=== PATIENT | male | born 1955 | race Caucasian/White ===

== ENCOUNTER 2023-10-27 18:00 | Inpatient (IN) | payer OTHER, SELFPAY ==
[2023-10-27] VITALS (28 sets, daily range): BP systolic 111–166; BP diastolic 21–93; PULSE 78; BMI 44.2; BMI 43.8
--- NOTE | 2023-10-27 17:38 | ED.CVA ---
History of Present Illness
General
Chief Complaint: CVA/TIA Symptoms
Source: patient and ambulance crew
Exam Limitations: none
Time Seen by Provider: 10/27/23 17:36
Nursing documentation reviewed up to this point in time: agreed with
Onset of Stroke Symptoms
Onset of symptoms known: Yes
Date of onset of symptoms: 10/27/23
Time of onset of symptoms: 17:00
History of Present Illness
History of Present Illness:
67-year-old male with past medical history of obesity who presents to the emergency room via EMS for evaluation of left-sided weakness and facial droop, prehospital stroke alert called. Patient reports onset of symptoms around 5 PM today�he was
getting food with a friend and had abrupt onset of blurry vision followed by left facial droop, slurred speech and left-sided weakness. EMS called to the scene and transported patient to the hospital, prehospital stroke alert was called. Patient
denies any headache. He says he feels some numbness and weakness in the left face. He says his left arm feels very weak and he feels mild weakness in the left leg. He denies any loss of vision. He denies similar symptoms in the past. He denies
any falls or head trauma. He denies taking any blood thinners. Per EMS he was normotensive with a normal Accu-Chek.
Review of Systems
Review of Systems
All Other Systems: ROS reviewed and negative except as documented in HPI and ROS
Constitutional: Denies fever or chills
Respiratory: Denies trouble breathing
Cardiac: Denies chest pain
ABD/GI: Denies abdominal pain, nausea or vomiting
: Denies flank pain
Musculoskeletal: Denies neck pain or back pain
Neurological: Reports weakness, numbness and other (Slurred speech); Denies dizzy or headache
Phy Exam
Physical Exam
Physical Exam:
General: Laying in bed eyes closed but opens to voice, oriented x 3
Head: Normocephalic, atraumatic
Eyes: Conjunctiva normal, patient has partial gaze palsy towards right
Throat: Airway intact, handling secretions
Neck: Trachea midline, supple without meningismus
Lungs: Clear to auscultation bilaterally, no wheezing, rales, rhonchi
Heart: Regular rate and rhythm, no murmurs, gallops, or rubs
Abd: Soft, non distended, nontender
Neuro: Patient has left facial droop and subjective sensory deficit left face; he has mild dysarthria; no aphasia; no limb ataxia; he has effort to gravity left upper extremity, drift against gravity left lower extremity, strength intact right upper
and lower extremity; sensory intact in all extremities
Skin: no rash
Extremities: Warm and well-perfused with good pulses
Scores
NIH Stroke Score
Level of Consciousness: 1 - Arousable
LOC Questions: 0-Answers both correctly
LOC Commands: 0-Performs both correctly
Best Horizontal Gaze: 1-Partial gaze palsy
Visual Meza: 0=Normal, no visual loss
Facial Palsy: 2=Partial paralysis
Motor - Right Arm: 0=No drift 10 seconds
Motor - Left Arm: 2=Partial vs. gravity
Motor - Right Le-No drift 5 seconds
Motor - Left Le-Drift < 5 seconds
Limb Ataxia: 0-Absent
Sensation: 0-Normal
Best Language: 0-No aphasia
Dysarthria: 1-Mild slurring
Extinction and Inattention: 0-No abnormality
Total Score:: 8
Heart Failure Risk
Heart Failure Risk Score: Not Applicable
Heart Score for Chest Pain Patients
STEMI patient?: Not applicable
Withdrawal Assessment of Alcohol
Withdrawal Assessment Completed?: Not applicable
Course
Orders/Labs/Results
Orders:
Orders
10/27/23 17:31
Electrocardiogram (*1) Urgent
Reason for Study: TIA/Stroke
EKG- Treatment ONCE
10/27/23 17:34
Complete Blood Count/With Diff Urgent
Comprehensive Metabolic Panel Urgent
Troponin I Urgent
10/27/23 17:36
CT Head W/o Cont STROKE ALERT Urgent
Comment:
Reason For Exam: left weakness, facial droop
CT Head/Neck Ang STROKE ALERT Urgent
Comment:
Reason For Exam: left weakness, facial droop
10/27/23 17:37
Electrocardiogram (*1) Stat
Reason for Study: Other
Other Reason for Exam: neuro symptoms
Bedside Glucose- Treatment ONCE
Cardiac Monitoring- Treatment ONCE
Vital Signs- Treatment ONCE
Frequency: q30m
Pulse Ox/cont/shift [RESP] Stat
Quantity: 1
10/27/23 17:43
Tenecteplase [Tnkase] 25 mg Syringe [Syringe Non-Pump] 0 ml IV NOW
Provider explained risk/benefits to patient &/or caregiver?: Yes
10/27/23 17:47
Admit/Transfer Patient As Directed
Co-Sign Provider:
Level of Care: Inpatient admission
Assign to:: ICU
Physician / Group: Sharonda
Diagnosis: acute CVA
Reason for Hospitalization: acute CVA
Expected length of stay greater than two midnights?: Yes
ELOS- Estimated Length of Stay in days: 3
I certify the patient meets the requirements for IP care: Yes
10/27/23 17:48
Code Status As Directed
Resuscitation Status: Full Code
10/27/23 18:25
Prothrombin Time Urgent
Abnormal Lab Results
10/27/23 10/27/23
17:34 17:52
Glucose 226 H mg/dl
(70-99)
POC Glucose 232 H mg/dl
(70-99)
10/27/23 17:34
10/27/23 17:34
Vital Signs
Initial and Last Documented VS:
Initial Vital Signs
Temp Pulse Resp BP Pulse Ox
37.0 C 83 21 166/72 99
10/27/23 17:52 10/27/23 17:52 10/27/23 17:52 10/27/23 17:52 10/27/23 17:52
Last Documented Vital Signs
Temp Pulse Resp BP Pulse Ox
37.0 C 83 22 161/73 99
10/27/23 17:52 10/27/23 18:15 10/27/23 18:15 10/27/23 18:15 10/27/23 17:52
MDM/Problems Addressed
Differential Diagnosis Includes:
Ischemic stroke, hemorrhagic stroke, complex migraine, seizure
MDM/Problems Addressed:
67-year-old male presents with acute onset left-sided weakness, facial droop, dysarthria with onset at 5 PM today. EMS called to the scene and prehospital stroke alert was called. He was immediately assessed on arrival and taken directly to CT
scan. His NIH stroke scale is 8, exam as above. Discussed initial noncontrast CT with radiology and it shows no acute hemorrhage. Discussed with neurology and will proceed with treatment for acute stroke with tenecteplase. Discussed risks and
benefits with patient and he is agreeable to proceeding with TNK. Critical care alert called and patient will be admitted to the ICU. Hospitalist immediately to the bedside to assess patient and admit. Usual labs sent off, awaiting results of CTA
head and neck. Continue to monitor.
Initial labs reviewed: CBC unremarkable, CMP shows hyperglycemia to 226�no history of diabetes. CTA head and neck shows hypoplasia of multiple cerebral vessels but no clear large vessel occlusion or intervenable lesion. Patient admitted to the ICU.
Chronic conditions affecting care:
Obesity
*Radiology
Radiology exam reviewed: preliminary read by ED provider and radiology read reviewed
*Pulse Oximetry
Patient hypoxic: no
*EKG
Interpreted by ED Provider?: Yes
Heart Rate: 80
Rate: normal
Rhythm: sinus
[place]: normal axis
Interval: first degree heart block
QRS Pattern: normal QRS
Ischemia: no ischemia
*Critical Care Note
Total Time (30-74mins, 75-104mins- exclusive of procedures): 30
comment:
Critical care statement: A total of 30 minutes of critical care time was provided for this patient. This includes management of unstable vital signs, evaluation of the patient at bedside, frequent reassessment, discussion with
consultants/hospitalist, and review of pertinent medical records. This time was separate from time utilized to perform any aforementioned documented procedures
Data Reviewed
Source: patient and ambulance crew
Patient Management
Discussion with other providers: Hospitalist (Discussed with hospitalist), Aircraft Air Conditioning Mechanic (Discussed with neurology) and Radiologist (Discussed with radiology)
Escalation/DeEscalation of care consider admission/obs:
Admission indicated
ED Attending Note
-
Portions of this chart may have been created with voice recognition software.� Occasional wrong word or��sound alike� substitutions may have occurred due to the inherent limitations of voice recognition software.
Discharge Plan
Departure
Patient Disposition: Admit
Date of Disposition: 10/27/23
Time of Disposition: 17:44
Admit to doctor: Landry
Presentation/result/management discussed w/ accepting MD/DO: Hospitalist
Discharge Problem:
Acute cerebrovascular accident (CVA)
Interventions
Interventions:
*Risk Screen - Suicide Last Done: 10/27/23 17:45
*Neglect/Abuse Screening Last Done: 10/27/23 17:45
*ED COVID-19 Vaccine History Last Done: 10/27/23 17:45
ED- Pulmonary Assessment Last Done: 10/27/23 18:00
ED- Neurological Assessment Last Done: 10/27/23 18:00
ED- Cardiac Assessment Last Done: 10/27/23 18:00
[2023-10-27 17:40] LABS: % Basophils 0.5 % (0-2); % Eosinophils 1.5 % (0-6); % Immature Granulocytes 0.4 % (0-0.5); % Lymphocytes 31.3 % (20.5-51.1); % Monocytes 6.7 % (1.7-9.3); % Neutrophils 59.6 % (42.2-75.2); Absolute Basophils 0.1 10^3/uL (0-0.2); Absolute Eosinophils 0.1 10^3/uL (0-0.7); Absolute Lymphocytes 2.9 10^3/uL (1.2-3.4); Absolute Monocytes 0.6 10^3/uL (0.1-0.6); Absolute Neutrophils 5.5 10^3/uL (1.4-6.5); Hematocrit 42.8 % (39.0-52.0); Hemoglobin 15.1 g/dL (13.0-18.0); Mean Corp Hgb Conc. 35.3 g/dL (33.0-37.0); Mean Corpuscular Hgb 28.9 pg (27.0-31.0); Mean Platelet Volume 8.5 fL (7.4-10.4); Nucleated Red Blood Cells % 0 % (-); Platelet Count 249 10^3/uL (130-400); Red Blood Cell Count 5.22 10^6/uL (4.70-6.10); Red Cell Dist. Width 13.2 % (11.5-14.5); White Blood Cell Count 9.2 10^3/uL (4.8-10.8)
[2023-10-27 17:54] LABS: Glucose - Point of Care 232 mg/dl (70-99)
[2023-10-27 17:59] LABS: ALT (SGPT) 37 U/L (0-50); AST (SGOT) 41 U/L (17-59); Albumin 4.6 g/dl (3.5-5.0); Alkaline Phosphatase 115 U/L (38-126); Blood Urea Nitrogen 14 mg/dl (9-20); Calcium 9.7 mg/dl (8.4-10.2); Carbon Dioxide 23 mmol/L (22-30); Chloride 100 mmol/L (98-107); Estimated Creatinine Clearance 104 ml/min; Glucose 226 mg/dl (70-99); Potassium 3.9 mmol/L (3.5-5.1); Sodium 136 mmol/L (135-145); Total Bilirubin 0.7 mg/dl (0.2-1.3); Total Protein 7.5 g/dl (6.3-8.2); eGFR > 60.00
[2023-10-27] MEDS: TNKASE 5 MG IV (17:59)
--- NOTE | 2023-10-27 18:03 | HPS.HSE ---
Family Physician
-
Family Physician: Leoncio Ny
Chief Complaint
-
Left-sided weakness
History of Present Illness
67-year-old male with no past medical history other than morbid obesity due to excess calories (denies essential hypertension, diabetes mellitus, history of myocardial infarction or congestive heart failure, previous stroke) who presents with chief
complaint of left-sided weakness. The patient has been under a great deal of stress recently. He was at work and felt slightly disoriented. He noticed diplopia. A coworker then noticed a left facial droop and left-sided weakness. He reports
that he has headaches due to 'allergies.' He denies any neck stiffness, rash, dysuria, chest pain, shortness of breath, palpitations, nausea, vomiting, diarrhea, abdominal pain.
Medical History
Past Medical History
Past Medical History: Reports None (see HPI)
Past Surgical History: Reports Other (N/A)
Social History
Tobacco: Non-smoker
Alcohol: Occasional
Drug: None
Family History
Family History: Not pertinent
Allergies / Home Medications
Allergies reflects when Allergies were last updated in [facility].
Home Medications with original date entered in [facility]
Allergy/Medication List:
Allergies
Allergy/AdvReac Type Severity Reaction Status Date / Time
Penicillins Allergy Mild Rash Verified 10/27/23 17:57
None
Review of Systems
-
History Source: Patient
A 12 point ROS was completed and negative except as noted: Yes
Physical Exam
Vital Signs
Vital Signs
Temp Pulse Resp BP Pulse Ox
98.6 F 83 21 166/72 99
10/27/23 17:52 10/27/23 17:52 10/27/23 17:52 10/27/23 17:52 10/27/23 17:52
Physical Exam
General: Other (.)
Laboratory Results
-
10/27/23 17:34
10/27/23 17:34
Laboratory Results
PT Cancelled 10/27/23 17:34
INR Cancelled 10/27/23 17:34
Total Bilirubin 0.7 mg/dl (0.2-1.3) 10/27/23 17:34
AST 41 U/L (17-59) 10/27/23 17:34
ALT 37 U/L (0-50) 10/27/23 17:34
Alkaline Phosphatase 115 U/L (38-126) 10/27/23 17:34
Impression/Plan
-
Gen: NAD, AAOx3.
Eyes: EOMI, PERRLA, no scleral icterus.
Neck: supple.
CV: RRR, +S1/S2, no m/r/g.
Resp: CTAB, no rales, wheezes, or rhonchi.
Abd: +BS, soft, NT, ND
Skin: No rashes.
Neuro: L-sided facial droop, LUE/LLE 10/13
Psych: Normal mood and affect.
Acute CVA:
-TNK given 1758 on 10/27/23
-post-TNK monitoring in ICU
-check FLP
-MRI/A head and neck, echo
-monitor for afib/flutter
-start ASA 24 hours post-TNK
-neurochecks
-c/s neuro
Hyperglycemia:
-Moderate resistance sliding scale insulin/Accu-Cheks
-Hemoglobin A1c was 6.2 in October 2014. Recheck hemoglobin A1c.
Morbid obesity due to excess calories:
-Encourage weight loss
-Affects all aspects of care
Total critical care time spent equals 35 minutes.
[2023-10-27 18:04] LABS: Troponin I < 0.012 ng/ml
[2023-10-27 18:40] LABS: INR 1.07; PT 13.9 Sec (11.4-14.6)
--- NOTE | 2023-10-27 20:00 | PTCARENOTE ---
Rec'd pt from ED s/p TNK for acute CVA. Initial NIH 8, now presenting to ICU NIH 1. PERRLA 2, GCS 15, clear speech. Left sided facial droop noted. Pt says he has a lisp at baseline. Able to feel left side of face, but feels 'different' than the
right. 5/5 motor strength. Pt updated on expectations and protocols. Afebrile, NSR on monitor. BP WNL at this time. Appreciate stroke parameters. Pulses palpable, anasarca, as well as pitting lower extremity edema. IV lines flushed/patent. Room air,
CPAP at night. RT made aware. Pt states he is claustrophobic and uses the nose CPAP. Currently NPO. Due to void. Oriented to ICU, at bedside, updated on plan of care. Will monitor.
[2023-10-27 22:03] LABS: Glucose - Point of Care 158 mg/dl (70-99)
--- NOTE | 2023-10-27 22:24 | PTCARENOTE ---
Pt assisted to side of bed to use urinal. 400 clear yellow urine. Neuro status remains unchanged. Passed swallow check. Diet ordered as per order, cholesterol lowering in AM. Will monitor.
[2023-10-27 23:46] LABS: Magnesium 1.9 mg/dl (1.6-2.3); Phosphorus 3.7 mg/dl (2.5-4.5)
[2023-10-28] VITALS (31 sets, daily range): BP systolic 99–148; BP diastolic 47–96; PULSE 82–84; BMI 43.8
--- NOTE | 2023-10-28 00:43 | PTCARENOTE ---
Pt uses CPAP at home. Unable to tolerate DH masks. brought up pt mask from home, RT able to use our machines with pt own mask. Pt now resting comfortably. No change in previous neuro assessments. Will monitor.
[2023-10-28 04:33] LABS: Hematocrit 41.3 % (39.0-52.0); Hemoglobin 14.1 g/dL (13.0-18.0); Mean Corp Hgb Conc. 34.1 g/dL (33.0-37.0); Mean Corpuscular Hgb 28.7 pg (27.0-31.0); Mean Corpuscular Volume 84.1 fL (80.0-94.0); Platelet Count 243 10^3/uL (130-400); Red Blood Cell Count 4.91 10^6/uL (4.70-6.10); Red Cell Dist. Width 13.1 % (11.5-14.5); White Blood Cell Count 9.5 10^3/uL (4.8-10.8)
[2023-10-28 04:43] LABS: INR 1.07
[2023-10-28 04:44] LABS: APTT 22.3 Sec (23.4-35.0)
--- NOTE | 2023-10-28 04:46 | PTCARENOTE ---
Pt resting comfortably on cpap (with home mask). No change in neuro assessment. Please see flowsheet. AM labs sent and pending. Will monitor and continue q1h neuro checks as ordered.
[2023-10-28 05:24] LABS: Blood Urea Nitrogen 13 mg/dl (9-20); Calcium 9.4 mg/dl (8.4-10.2); Carbon Dioxide 22 mmol/L (22-30); Chloride 101 mmol/L (98-107); Estimated Creatinine Clearance 116 ml/min; Glucose 161 mg/dl (70-99); HDL Cholesterol 25 mg/dl; LDL Cholesterol, Calculated 101 mg/dl; Potassium 4.1 mmol/L (3.5-5.1); Sodium 136 mmol/L (135-145); Total Cholesterol 187 mg/dl (50-199); Triglyceride 308 mg/dl (10-149); Very Low Density Lipoprotein 61 mg/dl (0-30); eGFR > 60.00
--- NOTE | 2023-10-28 06:58 | CON.INTV ---
Consultation
Consultation Request
Date/Time Consultation Requested: 10-28-23
Date/Time Consultation Performed: 10-28-23
Requesting Provider: Hospitalist kay
Performing Provider: Dr Ibanez
Reason for Consultation: L sided weakness
Medical History
-
Chief Complaint: L sided weakness
History of Present Illness:
Mr Venancio Corbin is a 67/M adm 10-26 with acute blurred vision, L facial droop, slurred speech and L sided weakness.
No PMH besides obesity.
EMS called to scene, normal BP and BS, brought to ER as stroke alert.
At ER, L sided weakness. Head CT negative for ICH, proceeded to TNK protocol
Improved L facial droop, resolved L extremity weakness
Hyperglycemia, new diagnosis DM by HgbA1c
Incidentally found DELMY 8.5 mm pulm nodule, suspected calcified granuloma or hamartoma
Nonsmoker
Social History
Tobacco: Non-smoker
Alcohol: Occasional
Drug: None
Personal:
Living: With Family
Employment: Employed
Family History
Family History: Reviewed & Not Pertinent
Allergies / Home Medications
Allergies
Allergy/AdvReac Type Severity Reaction Status Date / Time
Penicillins Allergy Mild Rash Verified 10/27/23 17:57
Home Medications
�Medication �Instructions �Recorded �Confirmed �Last Taken �Type
fluticasone propionate 50 1 spray intranasal DAILYPRN PRN 10/27/23 10/27/23 Unknown History
mcg/actuation nasal allergies
spray,suspension
Review of Systems
-
History Source: Patient
All other systems: Negative unless noted
Neuro: Weakness (L) and Other (diplopia)
Vitals / Labs / Diagnostic Testing
Vital Signs
Temp Pulse Resp BP Pulse Ox
97.0 F 83 25 144/96 96
10/28/23 03:15 10/28/23 06:15 10/28/23 06:15 10/28/23 06:00 10/28/23 06:15
Lab Data
10/28/23 03:23
10/28/23 03:23
Laboratory Results
10/27/23 10/27/23 10/28/23
17:34 18:25 03:23
PT Cancelled 13.9 14.0
INR Cancelled 1.07 1.07
APTT 22.3 L
Diagnostic Testing:
Physical Exam
-
HEENT: Normocephalic and Moist Mucous Membranes
Cardiovascular: Murmur (n), Peripheral Edema and JVD (n)
Respiratory: Clear and Non-Labored Respirations
GI: Soft, Non Distended and Non Tender
Neurology: Awake, AO x 3 and No Motor Deficits (L face droop, residual. Resolved L extremity weakness)
Skin: Warm
General: Respiratory Distress (n)
Assessment
-
Assessment:
Mr Venancio Corbin is a 67/M adm 10-26 with acute blurred vision, L facial droop, slurred speech and L sided weakness. No PMH besides obesity. EMS called to scene, normal BP and BS, brought to ER as stroke alert. At ER, L sided weakness. Head CT
negative for ICH, proceeded to TNK protocol
Impression:
Acute stroke with L sided paresia
S/p TKN 10-26
Moderate to severe calcific atherosclerotic plaque in both intracranial ICAs
Severe tortuosity of proximal R ICA
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
Hyperglycemia, new diagnosis DM
Incidentally found DELMY 8.5 mm pulm nodule, suspected calcified granuloma or hamartoma
Conditions CASH MANAGER:
Obesity
Hernia repair
Nonsmoker
Plan:
Admitted patient to medical intensive care unit
Supplemental oxygen to maintain saturation greater than 92%
Aspiration precautions
CXR portable, mild pulm vasc congestion
Neurology evaluation appreciated
Monitor blood pressure closely-goal SBP < 180, DBP < 105
Neuro checks per protocol
MRI brain
Hold antiplatelet therapy �24 hours
Check lipid panel, target LDL<70
TTE with LVEF 70-75%, normal RV size and systolic function
New diagnosis of DM with HgbA1c 8.4
Corrective insulin
Atorvostatin 80 mg daily if tolerated
Follow on incidentally found 8.5 mm DELMY nodule
D/w patient
Agreed to follow with [facility] or practice of his choice on a routine basis in 2-3 m post d/c, will need dedicated chest CT as outpatient
DVT prophylaxis-sequential for 24 hours and then Lovenox
Speech therapy/occupational therapy/physical therapy evaluation
Critical care time: 35 min
[2023-10-28 07:45] LABS: Glucose - Point of Care 183 mg/dl (70-99)
--- NOTE | 2023-10-28 07:52 | W.PN.HOSP.TC ---
Today's Communication/Plan
-
see bold
Assessment / Plan
Assessment / Plan
Gen: NAD, AAOx3.
Eyes: EOMI, PERRLA, no scleral icterus.
Neck: supple.
CV: RRR, +S1/S2, no m/r/g.
Resp: CTAB, no rales, wheezes, or rhonchi.
Abd: +BS, soft, NT, ND
Skin: No rashes.
Neuro: slight L-sided facial droop, 5/5 strength x 4
Psych: Normal mood and affect.
Echo: Hyperdynamic left ventricular systolic function.
Mild concentric left ventricular hypertrophy.
Normal right ventricular size and systolic function.
Limited study for 2-D analysis of the cardiac valves.
No valve disease identified.
If a cardiac source of embolus is a significant concern then a CHRISTIANNE should be
considered.
Right heart pressures could not be determined.
No prior study available for comparison.
Acute CVA:
-TNK given 1758 on 10/27/23
-post-TNK monitoring in ICU
-statin ordered
-MRI/A head and neck
-monitor for afib/flutter
-start ASA 24 hours post-TNK
-neurochecks
-appreciate neuro
DM2:
-new diagnosis, a1c 8.4%
-ADA 1800 diet
-start Metformin 1000mg BID
-Moderate resistance sliding scale insulin/Accu-Cheks
-c/s diabetes CPR AMBULANCE DRIVER
Morbid obesity due to excess calories:
-Encourage weight loss
-Affects all aspects of care
FULL, start Lovenox this evening (>24 hours post-TNK) pending MRI brain restuls
Anticipated Discharge: 24 - 48 hours
Subjective/Interval History
-
Date of Service: October 28, 2023
No new complaints.
Objective Data
-
Labs:
Laboratory Results
10/28/23
03:23
WBC 9.5
Hgb 14.1
Hct 41.3
Plt Count 243
PT 14.0
INR 1.07
APTT 22.3 L
Sodium 136
Potassium 4.1
Chloride 101
Carbon Dioxide 22
BUN 13
Creatinine 0.8
Glucose 161 H
Calcium 9.4
Vital Signs:
Vital Signs
Temp Pulse Resp BP Pulse Ox
98.1 F 83 25 144/96 96
10/28/23 07:40 10/28/23 06:15 10/28/23 06:15 10/28/23 06:00 10/28/23 06:15
I&O
10/27/23 10/28/23 10/29/23
06:59 06:59 06:59
Intake Total 120 / 120
Output Total 700 / 700
Balance -580 / -580
[2023-10-28] MEDS: NOVOLOG FLEXPEN-MODERATE RESISTANCE 1 UNITS SC (08:00)
[2023-10-28 09:30] LABS: Glycohemoglobin (HgbA1c) 8.4 % (4.0-5.6)
--- NOTE | 2023-10-28 09:33 | PTOTSP ---
FOOD SERVICE TECHNICIAN Evaluations
Suspect oral and pharyngeal stages of swallowing WFL to continue a regular, thin liquid diet at this time. Monitor for any increased signs of dysphagia or aspiration.
Quick Aphasia Battery Form 1 score = 9.81. No signs of aphasia. Patient with a frontal lisp /s/ which is baseline. Speech 100% intelligible.
Recommend:
1. Regular, Thin Liquids
2. Medications - as best tolerated
3. General aspiration and reflux precautions
--- NOTE | 2023-10-28 09:57 | PTCARENOTE ---
Rec'd pt at [address] Cox at the bedside talking with pt. Rec'd pt awake alert and oriented. States he is so glad that most all of his symptoms have resolved. Still with mild L facial droop and sl decreased sensation 'feels
different' at the corner of his mouth but no numbness on his cheeks or anywhere else. ROSARIO. Speech is clear- pt has a baseline lisp. Tongue protrudes midline. Denies dizziness or headache. ELIEZER at 2mm. Denies blurred vision. NIH 1. Skin is pink wm
and dry. Does have several scabbed areas which pt states are chronic for him. Respirs are unlabored on RA with sats of 96%. BS are sl decreased at the bases otherwise clear. Monitor SR. + pulses. +1 LE edema. Denies chest pain. VS as documented. Abd
is obese with + BS. Denies nausea. Denies need to void currently. Capped ints intact L and R arm. Pt able to help reposition himself and is eating breakfast currently. Call peterson in reach and plan of care reviewed with pt.
--- NOTE | 2023-10-28 11:00 | PTCARENOTE ---
Pt resting most of morning. No complaints. Assisted oob to the bathroom to void. After voiding stood at the sink and did oral care and CHG bath given. Pt then briefly in the chair then back to bed for ECHO which is being done currently. No c/o
dizziness but admitted to stiffness in hips. Neuro assessment is unchanged. Mostly just a sl L facial droop. Gait was steady. Call peterson in reach. Pt for MRI later today.
--- NOTE | 2023-10-28 11:45 | CON.NEURO4 ---
Consultation - Neurology 4
-
CONSULTING PHYSICIAN: Rebecac Cox
REFERRING PHYSICIAN: ER
DICTATED BY: Rebecca Cox
DATE/TIME OF REQUEST: 10/27/23
DATE/TIME OF CONSULTATION: 10/28/23
Reason for Consultation: Stroke alert s/p TNK
History of Present Illness:
The patient is a 67-year-old right-handed man with a past medical history of obesity who presented to the hospital with symptoms of acute ischemic stroke of left-sided severe facial arm and leg weakness with onset approximately 5 PM yesterday. He
had been feeling in his normal state of health for the past few days and upon awakening yesterday with no recent unusual headaches head or neck trauma or recent illnesses. He presented to the ED and had an NIH stroke scale initially significant
dysarthria facial droop gaze palsy and left arm and leg weakness. He was brought into the hospital very quickly after onset of symptoms as he was accompanied by a friend who saw the symptom onset and the friend had previously had a stroke. CT head
noncontrast was negative for any hemorrhage and CTA of the head and neck showed no large vessel occlusion he was given tenecteplase for acute ischemic stroke and admitted to the ICU.
Patient thankfully has had a profound improvement in his symptoms. Currently he denies any headache and does not notice any weakness on the left arm or leg. He has not had any episodes in a similar manner no history of TIA or stroke or heart
disease chest pain palpitations or heart attacks. He does not take any antiplatelet or blood thinners at baseline. Reports his diet could still use some improvement.
Past Medical History: No chronic medical conditions apart from obesity
Surgical History: Eye surgery for strabismus as child, hernia repair, hernia repair revision
Family History: Non-contributory
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
Allergies: Penicillins
Review of Symptoms:
Patient denies any fever, headache, chest pain, shortness of breath, GI or symptoms.
Physical Exam:
Well-appearing middle-age man appears his stated age he is obese no signs of head or neck trauma eyes are clear oropharynx is clear heart rate regular normal S1-S2 no murmur breathing unlabored with no wheezes, abdomen obese soft nontender no lower
extremity edema rash or joint deformity seen
Neurologic Examination:
The patient is awake, alert and oriented x 3. He is able to follow commands and answer questions appropriately. There is no aphasia or dysarthria. On cranial nerve assessment, pupils are 3 mm bilateral, round and reactive to light and
accommodation. Visual meza are full. Extraocular movements are intact. Facial sensations are intact and bilaterally symmetrical, there is very mild left facial weakness present. Hearing is intact bilaterally to normal conversation volume. Tongue
palate and uvula are midline. Sternocleidomastoid strengths are full bilaterally. Motor strengths are 5/5 bilateral upper and lower extremities on medical research Morton scale. There is no drift or involuntary movement noted. Deep tendon reflexes
are 2+ bilateral upper and lower extremities and Babinski is absent bilaterally. Sensations of pain, touch, temperature and vibration are intact and bilaterally symmetrical. There was no extinction noted on double simultaneous stimulation.
Coordination is intact by finger to nose bilaterally.
Neuro Imaging: CT head noncontrast with aspect score of 10 no acute hemorrhage no areas of early ischemia no acute or chronic infarct no masses or edema
NECK CTA:
1. Severe tortuosity of the proximal right internal carotid artery with a severe 'loop' in the proximal ICA. Mild atherosclerotic plaque in the proximal right ICA causing less than 25% diameter stenosis.
2. Less than 25% diameter stenosis in the proximal left ICA.
3. 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
4. 8.5 mm solid pulmonary nodule in the left upper lobe (possibly a calcified pulmonary granuloma or hamartoma). A follow-up chest CT examination in 3 months is recommended.
HEAD CTA:
1. Moderate to severe calcific atherosclerotic plaque in both intracranial internal carotid arteries causing a 50% diameter stenosis on the right and less than 50% diameter stenosis on the left.
2. Severe greater than 70% diameter stenosis in a severely hypoplastic right anterior cerebral artery A1 segment. Patent anterior communicating artery supplying blood to the more distal right anterior cerebral artery.
3. No CTA evidence for middle cerebral artery stenosis or occlusion.
4. 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
5. Severe 70% diameter stenosis in the P1 segment of the left posterior cerebral artery.
Impressions
1. Presented with severe acute ischemic stroke symptoms with left-sided weakness of face/arm/leg as well as mild gaze palsy. After thrombolytic therapy with TNK he likely has had profound improvement in stroke symptoms. Current NIH stroke scale
of 1 for some mild left facial weakness. Presenting symptoms are most suggestive of a subcortical stroke on the right side of the brain either julianne or basal ganglia area are most likely. Will most likely show some areas of stroke on brain MRI.
2. Obesity
3. Intracranial stenosis seen on the CTA of the head and neck of the intracranial internal carotid arteries along with right anterior cerebral artery and left posterior cerebral artery
Patient has the following risk factors for their symptoms: obesity, age
IV Tenecteplase/IAT candidacy: Patient received tenecteplase for acute ischemic stroke he had no contraindications and had severely disabling stroke symptoms present on admission there is no large vessel occlusion seen on CTA head and neck because
he was not a candidate for IAT
Recommendations:
1. Would monitor in ICU for today and tonight
2. Neurologic checks and NIH stroke scales notify us of any neurologic changes headache or vomiting
3. Blood pressure goal less than 180/105, labetalol as needed and if not meeting goals with switch to infusion medication for control
4. Check MRI brain without contrast roughly 24 hours after TNK was given
5. If no significant hemorrhage on brain MRI plan to start on aspirin and clopidogrel
6. Start atorvastatin 80 mg daily
7. Goal normoglycemia
8. Monitor on cardiac telemetry and check transthoracic echocardiogram
9. Check lipid panel and hemoglobin a1c
10. Stroke education materials discussed secondary prevention and improved exercise and diet and weight loss
11. Speech physical Occupational Therapy evaluations
Total ICU time equals 75 minutes
Will follow
Discussed patient care with: Patient, nursing
Allergies
-
Allergies
Allergy/AdvReac Type Severity Reaction Status Date / Time
Penicillins Allergy Mild Rash Verified 10/27/23 17:57
Vital Signs / Labs
-
Vital Signs and Labs:
Temp Pulse Resp BP Pulse Ox
98.1 F 85 26 132/67 95
10/28/23 07:40 10/28/23 11:00 10/28/23 11:00 10/28/23 11:00 10/28/23 11:00
10/28/23 03:23
10/28/23 03:23
10/27/23 10/27/23 10/27/23
17:34 17:52 21:52
APTT
Glucose 226 H
Hemoglobin A1c 8.4 H
Triglycerides
VLDL Cholesterol, Calc
POC Glucose 232 H 158 H
10/28/23 10/28/23
03:23 07:34
APTT 22.3 L
Glucose 161 H
Hemoglobin A1c
Triglycerides 308 H
VLDL Cholesterol, Calc 61 H
POC Glucose 183 H
NIH Stroke Score
Subsequent NIH Scale
Date of Subsequent NIH Scale: 10/28/23
Time of Subsequent NIH Scale: 08:00
NIH Stroke Score
Level of Consciousness: 0 - Alert
LOC Questions: 0-Answers both correctly
LOC Commands: 0-Performs both correctly
Best Horizontal Gaze: 0-Normal
Visual Meza: 0=Normal, no visual loss
Facial Palsy: 1=Minor paralysis
Motor - Right Arm: 0=No drift 10 seconds
Motor - Left Arm: 0=No drift 10 seconds
Motor - Right Le-No drift 5 seconds
Motor - Left Le-No drift 5 seconds
Limb Ataxia: 0-Absent
Sensation: 0-Normal
Best Language: 0-No aphasia
Dysarthria: 0-Normal
Extinction and Inattention: 0-No abnormality
Total Score:: 1
Modified Michelle (mRS) Score
Modified Michelle Scale (mRS): No significant disability. Able to carry out usual activities.
Score: 1
Home Medications
-
Home Medications
fluticasone propionate 50 mcg/actuation nasal spray,suspension 1 spray intranasal DAILYPRN PRN allergies 10/27/23
[2023-10-28] MEDS: NOVOLOG FLEXPEN-MODERATE RESISTANCE SC ×2 (12:22→18:08)
--- NOTE | 2023-10-28 12:25 | CM ---
CM following re: discharge planning.
Discussed in rounds, reviewed pt's chart, met with pt and pt's ay bedside.
Pt is a 67 year old male, admitted with primary concerns of stroke/TIA. per Rounds meting, MRI today. Pt stated he is able to go to the bathroom independently.
Pt reports he lives with in a condo, no steps yto enter. Pt described himself as independent in all areas [employer], drives, works. No DME, VN or SNF history.
A copy of AD with additional information provided to the pt and his .
ST indicated skilled services at discharge. PT and OT evaluations pending due to TNK was given at 17:43 yesterday and PT/OT ion hold until 24 hours minimum post-TNK.
PCP: Leoncio Cannon
Ph[facility]: [facility]
D/C plan: most likely home with outpatient PT/OT/ST.
CM will follow with discharge plan updates as hospitalization progresses
[2023-10-28 12:31] LABS: Glucose - Point of Care 148 mg/dl (70-99)
--- NOTE | 2023-10-28 13:04 | PTCARENOTE ---
Sitting back oob in the chair. Good appetite for lunch. No changes in assessment
--- NOTE | 2023-10-28 14:30 | PN.DE.MGMTRT ---
Insulin Management
- -
10/28/2023: Diabetes Management Consult
67 year old male with No PMH besides obesity, admitted on 10/26 with acute blurred vision, Left facial droop, slurred speech and Left sided weakness due to acute CVA. Also noted for new onset T2DM. A1C 8.4%, Cr 0.8, eGFR >60.
Pt sen in ICU with Spouse at bedside. Pt Awake, A/O x3, pleasant, able to participate in discussion regarding diabetes plan of care.
He reports that he has not seen a doctor for awhile now but has a PCP Dr. Ny.
Pt has been started on Metformin 1000 mg BID and moderate corrective insulin by primary team.
Glucose has been stable, FBG was 161 this AM, Pre-breakfast 183, required 1 unit of corrective insulin
Will start Glipizide 5mg BID and cont Metformin 1000 mg BID for optimal glucose control.
Will provide glucose monitor and instructions for home use
.
Diabetes History
- -
Type of Diabetes: 2
Pre-Admission Diabetes Regimen
10/27/23 10/28/23
17:34 03:23
Creatinine 0.9 0.8
Lab Results
Hemoglobin A1c Cancelled 10/27/23 18:55
Insulin Pump Settings
IP Diabetes Regimen
10/27/23 10/27/23 10/27/23
17:34 17:52 21:52
Glucose 226 H
POC Glucose 232 H 158 H
10/28/23 10/28/23 10/28/23
03:23 07:34 12:19
Glucose 161 H
POC Glucose 183 H 148 H
Meal type: Lunch
Meal type: Breakfast
Amount consumed: 100%
Amount consumed: 100%
Patient Education
--- NOTE | 2023-10-28 15:29 | PTCARENOTE ---
Sat up for several hours. Now back to bed. States he is just tired. Awaiting MRI. No changes otherwise
--- NOTE | 2023-10-28 16:23 | PN.DE ---
Diabetes Education
- -
Diabetes Education:
Met with Mr. Shaquille soto Spouse at bedside for glucose monitor instructions. Current A1C 8.4%.
Discussed importance of reducing CHO intake, being active and checking BS to assess food/medication effect on his BS. Provided with Contour Next EZ glucometer, instructions with good return demonstration, result 134 mg/dl 3hr post lunch. Discussed
testing pattern and expected results and information marked in the take home booklet. Encourage physical activity and benefit of losing weight.
He will follow up with his PCP to initiate GLP-1. Information for OP DSME education classes given, encouraged to call and register for sept classes when ready.
Will need RX for test strips and lancets for the Contour Next EZ, testing 2x/day at discharge
[2023-10-28 16:28] LABS: Glucose - Point of Care 164 mg/dl (70-99)
[2023-10-28] MEDS: ATIVAN 1 MG IV (16:51)
[2023-10-28] MEDS: NSS (PRESERVATIVE FREE) 0.5 ML IV (16:52)
[2023-10-28] MEDS: FLUSH (NSS) 1 FLUSH IV (16:53)
--- NOTE | 2023-10-28 17:00 | PTCARENOTE ---
Taken via bed for MRI. Assessment unchanged. Premedicated with Ativan 1 mg IV prior to MRI at 1651.
--- NOTE | 2023-10-28 18:15 | PTCARENOTE ---
Returned from MRI at 1800. Tolerated procedure. Assessment is unchanged. Blood sugar rechecked -138. Ready to eat dinner. Will continue to monitor
[2023-10-28 18:20] LABS: Glucose - Point of Care 138 mg/dl (70-99)
[2023-10-28] MEDS: LIPITOR 80 MG PO (18:23)
[2023-10-28] MEDS: GLUCOPHAGE 1000 MG PO (18:23)
[2023-10-28] MEDS: GLUCOTROL 5 MG PO (18:23)
--- NOTE | 2023-10-28 21:00 | PTCARENOTE ---
MRI completed on previous shift. Pt groggy from Ativan for test (2/2 claustrophobia). NIH remains 1, slight left sided facial droop. GCS 15 ROSARIO 5/5. No c/o pain/headache. Afebrile. NSR on monitor, BP 120-130/50-60. IV lines flushed/patent. Room air,
CPAP for HS. Lugs clear, decreased at bases, slight FRANK, no dizziness/desat with activity. Abdomen very round/soft/distended/obese. BM this AM. Tolerating diet as ordered. Voids in urinal. Will monitor.
[2023-10-28 21:37] LABS: Glucose - Point of Care 162 mg/dl (70-99)
[2023-10-28] MEDS: ASPIR LOW (ENTERIC COATED) 81 MG PO (21:51)
[2023-10-28] MEDS: PLAVIX 75 MG PO (21:51)
[2023-10-29] VITALS (8 sets, daily range): BP systolic 121–145; BP diastolic 63–98; PULSE 85
--- NOTE | 2023-10-29 00:30 | PTCARENOTE ---
No change in previous neuro assessment. NIH 1. Pt on CPAP overnight. Will monitor.
[2023-10-29 03:52] LABS: Hematocrit 42.9 % (39.0-52.0); Hemoglobin 14.9 g/dL (13.0-18.0); Mean Corp Hgb Conc. 34.7 g/dL (33.0-37.0); Mean Corpuscular Hgb 29.2 pg (27.0-31.0); Mean Platelet Volume 8.6 fL (7.4-10.4); Platelet Count 246 10^3/uL (130-400); Red Blood Cell Count 5.11 10^6/uL (4.70-6.10); Red Cell Dist. Width 13.1 % (11.5-14.5)
[2023-10-29 04:06] LABS: Blood Urea Nitrogen 15 mg/dl (9-20); Calcium 9.6 mg/dl (8.4-10.2); Carbon Dioxide 20 mmol/L (22-30); Chloride 104 mmol/L (98-107); Estimated Creatinine Clearance 116 ml/min; Glucose 162 mg/dl (70-99); Potassium 4.1 mmol/L (3.5-5.1); Sodium 135 mmol/L (135-145); eGFR > 60.00
--- NOTE | 2023-10-29 05:46 | PTCARENOTE ---
No change in previous neuro assessment. Pt remains GCS 15, NIH 1, appropriate. Sliht left sided facial droop. OOB to BR with assist. Tolerating CPAP (home mask, DH machine). Labs sent and resulted. Will monitor.
--- NOTE | 2023-10-29 07:28 | W.PN.INTV ---
Today's Communication / Plan
Recommendations
Reconsult prn
Assessment
-
Assessment:
Mr Venancio Corbin is a 67/M adm 10-26 with acute blurred vision, L facial droop, slurred speech and L sided weakness. No PMH besides obesity. EMS called to scene, normal BP and BS, brought to ER as stroke alert. At ER, L sided weakness. Head CT
negative for ICH, proceeded to TNK protocol
Impression:
Acute stroke with L sided paresia
S/p TKN 10-26
Moderate to severe calcific atherosclerotic plaque in both intracranial ICAs
Severe tortuosity of proximal R ICA
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
Hyperglycemia, new diagnosis DM
Incidentally found DELMY 8.5 mm pulm nodule, suspected calcified granuloma or hamartoma
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
Obesity
Hernia repair
Nonsmoker
Plan:
Admitted patient to medical intensive care unit
Supplemental oxygen to maintain saturation greater than 92%
Aspiration precautions
CXR portable, mild pulm vasc congestion
Neurology evaluation appreciated
Monitor blood pressure closely-goal SBP < 180, DBP < 105
Neuro checks per protocol
H/N CTA showed incidental DELMY nodule, patient aware
MRI brain showed 9 mm subacute nonhemorrhagic R thalamic infarct
ASA, plavix
Check lipid panel, target LDL<70
TTE with LVEF 70-75%, normal RV size and systolic function
New diagnosis of DM with HgbA1c 8.4
Corrective insulin
Atorvastatin 80 mg daily if tolerated
Follow on incidentally found 8.5 mm DELMY nodule with small central calcification
D/w patient
No history of smoking
No personal history of occupational or environmental exposures
Only family history of cancer in father at age 80 (esophageal), brother just diagnosed with prostate cancer at age 63
Agreed to follow with [facility] or practice of his choice on a routine basis in 2 m post d/c, will need dedicated chest CT as outpatient in 3 m post d/c as seems a low risk scenario
DVT prophylaxis-sequential for 24 hours and then Lovenox
Speech therapy/occupational therapy/physical therapy evaluation
Stable for transfer out of ICU
Reconsult as needed
Subjective Dataa
Subjective Data
Date of Service:
Date of Service: October 29, 2023
Chief Complaint: [employer]ide [employer]or Follow Up
Subjective:
No major events reported overnight
Remains hemodynamically and respiratory [place] stable
Trace residual weakness in the left face
No history of smoking
No personal history of occupational or environmental exposures
Only family history of cancer in father at age 80 (esophageal), brother just diagnosed with prostate cancer at age 63
Review of Systems
General: Fever (n), Sweats (n), Chills (n) and Satisfactory Appetite
HEENT: Epistaxis (n) and Dysphagia (n)
Cardiopulmonary: Dyspnea (n), Cough (n), Wheezing (n) and Chest Pain (n)
GI: Abdominal Pain (n), Nausea (n) and Vomiting (n)
Neuro: Weakness (n)
Objective Data
Data Reviewed
Vital Signs / I&O / Oxygen:
Vital Signs
Temp Pulse Resp BP Pulse Ox
97.7 F 75 23 121/63 93
10/29/23 02:55 10/29/23 06:00 10/29/23 06:00 10/29/23 06:00 10/29/23 06:00
Intake and Output
10/28/23 10/29/23 10/30/23
06:59 06:59 06:59
Intake Total 120 / 120 1390 / 1390
Output Total 700 / 700
Balance -580 / -580 1390 / 1390
SaO2 93
Physical Exam
General: Comfortable
HEENT: Normocephalic and Moist Mucous Membranes
Cardiovascular: Regular Rhythm, Murmur (n), Peripheral Edema (n) and Calf Tenderness (n)
Respiratory: Clear, Non-Labored Respirations and Stridor (n)
GI: Soft, Non Distended and Non Tender
Neurology: Awake, AO x 3 and Other (residual L facial droop)
Labs/Micro/Reports
Lab Data
10/29/23 03:39
10/29/23 03:39
--- NOTE | 2023-10-29 07:50 | W.PN.HOSP.TC ---
Today's Communication/Plan
-
d/c
Assessment / Plan
Assessment / Plan
Gen: NAD, AAOx3.
Eyes: EOMI, PERRLA, no scleral icterus.
Neck: supple.
CV: remains RRR, +S1/S2, no m/r/g.
Resp: remains CTAB, no rales, wheezes, or rhonchi.
Abd: +BS, soft, NT, ND
Skin: No rashes.
Neuro: remains slight L-sided facial droop, 5/5 strength x 4
Psych: Normal mood and affect.
Echo: Hyperdynamic left ventricular systolic function.
Mild concentric left ventricular hypertrophy.
Normal right ventricular size and systolic function.
Limited study for 2-D analysis of the cardiac valves.
No valve disease identified.
If a cardiac source of embolus is a significant concern then a CHRISTIANNE should be
considered.
Right heart pressures could not be determined.
No prior study available for comparison.
MRI brain: 9 mm subacute nonhemorrhagic right thalamic infarct
CTA head/neck:
NECK CTA:
1. Severe tortuosity of the proximal right internal carotid artery with a severe 'loop' in the proximal ICA. Mild atherosclerotic plaque in the proximal right ICA causing less than 25% diameter stenosis.
2. Less than 25% diameter stenosis in the proximal left ICA.
3. 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
4. 8.5 mm solid pulmonary nodule in the left upper lobe (possibly a calcified pulmonary granuloma or hamartoma). A follow-up chest CT examination in 3 months is recommended.
HEAD CTA:
1. Moderate to severe calcific atherosclerotic plaque in both intracranial internal carotid arteries causing a 50% diameter stenosis on the right and less than 50% diameter stenosis on the left.
2. Severe greater than 70% diameter stenosis in a severely hypoplastic right anterior cerebral artery A1 segment. Patent anterior communicating artery supplying blood to the more distal right anterior cerebral artery.
3. No CTA evidence for middle cerebral artery stenosis or occlusion.
4. 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
5. Severe 70% diameter stenosis in the P1 segment of the left posterior cerebral artery.
Acute R-thalamic CVA:
-TNK given 1759 on 10/27/23
-post-TNK monitoring in ICU
-cont ASA/statin
-plavix for 90 days
-tele with SR
-neurochecks
-appreciate neuro
DM2:
-new diagnosis, a1c 8.4%
-ADA 1800 diet
-cont Metformin/Glipizide
-Moderate resistance sliding scale insulin/Accu-Cheks
Morbid obesity due to excess calories:
-Encourage weight loss
-Affects all aspects of care
8.5 mm solid pulmonary nodule in the left upper lobe: follow up CT chest in 3 months
FULL/Lovenox
Medically cleared for d/c. Discussed with Dr. Khan.
Total time spent on d/c = 31 min. This included today's physical exam, progress note, review of laboratory and diagnostic data, preparation of discharge documents and prescriptions, and discussions about the pt's hospital course and discharge plan
with the patient and other medical staff director involved in the patient's care.
Anticipated Discharge: Today
Subjective/Interval History
-
Date of Service: October 29, 2023
No new complaints.
Objective Data
-
Labs:
Laboratory Results
10/29/23
03:39
WBC 11.0 H
Hgb 14.9
Hct 42.9
Plt Count 246
Sodium 135
Potassium 4.1
Chloride 104
Carbon Dioxide 20 L
BUN 15
Creatinine 0.8
Glucose 162 H
Calcium 9.6
Vital Signs:
Vital Signs
Temp Pulse Resp BP Pulse Ox
97.7 F 75 23 121/63 93
10/29/23 07:37 10/29/23 06:00 10/29/23 06:00 10/29/23 06:00 10/29/23 06:00
I&O
10/28/23 10/29/23 10/30/23
06:59 06:59 06:59
Intake Total 120 / 120 1390 / 1390
Output Total 700 / 700
Balance -580 / -580 1390 / 1390
[2023-10-29 08:03] LABS: Glucose - Point of Care 161 mg/dl (70-99)
[2023-10-29] MEDS: NOVOLOG FLEXPEN-MODERATE RESISTANCE 1 UNITS SC (08:03)
[2023-10-29] MEDS: ASPIR LOW (ENTERIC COATED) 81 MG PO (08:03)
[2023-10-29] MEDS: GLUCOTROL 5 MG PO (08:03)
[2023-10-29] MEDS: PLAVIX 75 MG PO (08:03)
[2023-10-29] MEDS: GLUCOPHAGE 1000 MG PO (08:03)
--- NOTE | 2023-10-29 09:26 | PTCARENOTE ---
Patient received this am. Assessment as documented. Patient aaox3. ROSARIO. NIH done in tandem with previous shift. No weakness noted. L facial droop noted. No change. Speech clear. Patient with no complaints. Ambulating to the bathroom. Gait steady.
--- NOTE | 2023-10-29 10:33 | W.PN.NEURO.1 ---
Today's Communication / Plan
-
d/c
Neuro Assessment/Plan
Assessment
Impressions
1. Presented with severe acute ischemic stroke symptoms with left-sided weakness of face/arm/leg as well as mild gaze palsy. After thrombolytic therapy with TNK he likely has had profound improvement in stroke symptoms. NIH stroke scale
remains 1 for some mild left facial weakness. MRI brain confirms a 9 mm subacute nonhemorrhagic right thalamic infarct, likely atherothrombotic in etiology.
2. Obesity
3. Intracranial stenosis seen on the CTA of the head and neck of the intracranial internal carotid arteries along with right anterior cerebral artery and left posterior cerebral artery
Patient has the following risk factors for their symptoms: obesity, age
IV Tenecteplase/IAT candidacy: Patient received tenecteplase for acute ischemic stroke he had no contraindications and had severely disabling stroke symptoms present on admission there is no large vessel occlusion seen on CTA head and neck because
he was not a candidate for IAT
Imaging:
MRI brain: 9 mm subacute nonhemorrhagic right thalamic infarct
Neuro Imaging: CT head noncontrast with aspect score of 10 no acute hemorrhage no areas of early ischemia no acute or chronic infarct no masses or edema
NECK CTA:
1. Severe tortuosity of the proximal right internal carotid artery with a severe 'loop' in the proximal ICA. Mild atherosclerotic plaque in the proximal right ICA causing less than 25% diameter stenosis.
2. Less than 25% diameter stenosis in the proximal left ICA.
3. 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
4. 8.5 mm solid pulmonary nodule in the left upper lobe (possibly a calcified pulmonary granuloma or hamartoma). A follow-up chest CT examination in 3 months is recommended.
HEAD CTA:
1. Moderate to severe calcific atherosclerotic plaque in both intracranial internal carotid arteries causing a 50% diameter stenosis on the right and less than 50% diameter stenosis on the left.
2. Severe greater than 70% diameter stenosis in a severely hypoplastic right anterior cerebral artery A1 segment. Patent anterior communicating artery supplying blood to the more distal right anterior cerebral artery.
3. No CTA evidence for middle cerebral artery stenosis or occlusion.
4. 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
5. Severe 70% diameter stenosis in the P1 segment of the left posterior cerebral artery.
Plan
Recommendations:
- Ok for d/c home, needs neurology f/u in 2-3 mos in our office; reviewed s/s of stroke and importance of calling 911 should these recur
-reviewed MRI brain findings with patient, he is very thankful for his care
-started aspirin 81mg daily and clopidogrel 75mg daily x 90 days, then ASA 81mg daily only
- Continue atorvastatin 80 mg daily; LDL 101 off any meds; goal <70
- Goal normoglycemia, normotension
- Reviewed echo, no CSE seen
-HgbA1C is 8.4; needs to discuss DM treatment with his PCP upon d/c
- Stroke education materials discussed secondary prevention and improved exercise and diet and weight loss
-Speech physical Occupational Therapy evaluations
Critical care time 35 mins
Subjective/Objective
Subjective Data
Date of Service: October 29, 2023
no new complaints; still has L facial weakness
Objective Data
Vital Signs
Temp Pulse Resp BP Pulse Ox
97.7 F 100 23 143/82 96
10/29/23 07:37 10/29/23 09:00 10/29/23 09:00 10/29/23 08:01 10/29/23 09:16
Lab Results
10/29/23 03:39
10/29/23 03:39
PT 14.0 Sec (11.4-14.6) 10/28/23 03:23
INR 1.07 10/28/23 03:23
APTT 22.3 Sec (23.4-35.0) L 10/28/23 03:23
Sodium 135 mmol/L (135-145) 10/29/23 03:39
Potassium 4.1 mmol/L (3.5-5.1) 10/29/23 03:39
BUN 15 mg/dl (9-20) 10/29/23 03:39
Glucose 162 mg/dl (70-99) H 10/29/23 03:39
Calcium 9.6 mg/dl (8.4-10.2) 10/29/23 03:39
Phosphorus 3.7 mg/dl (2.5-4.5) 10/27/23 17:34
LDL Cholesterol, Calc 101 mg/dl 10/28/23 03:23
Patient Allergies
Penicillins Allergy (Mild, Verified 10/27/23 17:57)
Rash
Physical Exam
-
The patient is awake, alert and oriented x 3. He is able to follow commands and answer questions appropriately. There is no aphasia or dysarthria. On cranial nerve assessment, pupils are 3 mm bilateral, round and reactive to light and accommodation.
Visual lopez are full. Extraocular movements are intact. Facial sensations are intact and bilaterally symmetrical, there is very mild left facial weakness present. Hearing is intact bilaterally to normal conversation volume. Tongue palate and
uvula are midline. Sternocleidomastoid strengths are full bilaterally. Motor strengths are 5/5 bilateral upper and lower extremities on medical research [place] scale. There is no drift or involuntary movement noted. Deep tendon reflexes are 2+
bilateral upper and lower extremities and Babinski is absent bilaterally. Sensations of pain, touch, temperature and vibration are intact and bilaterally symmetrical. There was no extinction noted on double simultaneous stimulation. Coordination is
intact by finger to nose bilaterally.
--- NOTE | 2023-10-29 10:57 | CHAP ---
Mr. Corbin was in good spirits, looking forward to discharge. He is grateful for the good care he received, and is resolved to make changes in his life to improve his health. Emotional and spiritual support provided.
--- NOTE | 2023-10-29 11:26 | CM ---
CM following re: discharge planning.
Reviewed pt's chart, met with pt and pt's at bedside.
Discharge order is noted. Both pt and his are aware, expressed their agreement with discharge, IMM reviewed, placed in chart, pt has a copy.
ST, Pt and OT recommend outpatient therapy. Pt agrees and he stated he will come to outpatient therapy. A script for outpatient therapy provided.
D/C plan: home with outpatient PT, OT, ST. to transport
[2023-10-29 12:04] LABS: Glucose - Point of Care 105 mg/dl (70-99)
[2023-10-29] MEDS: NOVOLOG FLEXPEN-MODERATE RESISTANCE SC (12:42)
--- NOTE | 2023-10-29 15:57 | W.DCSUMMARY ---
Discharge Summary
Discharge Data
Date of Admission: 10/27/23
Date of Discharge: 10/29/23
-
Pending Results: No
Hospital Course
Primary diagnoses:
Acute Right-thalamic cerebrovascular accident
Type 2 diabetes mellitus, new diagnosis
Secondary diagnoses:
Morbid obesity due to excess calories:
8.5 mm solid pulmonary nodule in the left upper lobe
Consultants:
Neurology
Critical care
Diabetes nurse practitioner
Imaging:
Echo: Hyperdynamic left ventricular systolic function.
Mild concentric left ventricular hypertrophy.
Normal right ventricular size and systolic function.
Limited study for 2-D analysis of the cardiac valves.
No valve disease identified.
If a cardiac source of embolus is a significant concern then a CHRISTIANNE should be
considered.
Right heart pressures could not be determined.
No prior study available for comparison.
MRI brain: 9 mm subacute nonhemorrhagic right thalamic infarct
CTA head/neck:
NECK CTA:
1. Severe tortuosity of the proximal right internal carotid artery with a severe 'loop' in the proximal ICA. Mild atherosclerotic plaque in the proximal right ICA causing less than 25% diameter stenosis.
2. Less than 25% diameter stenosis in the proximal left ICA.
3. 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
4. 8.5 mm solid pulmonary nodule in the left upper lobe (possibly a calcified pulmonary granuloma or hamartoma). A follow-up chest CT examination in 3 months is recommended.
HEAD CTA:
1. Moderate to severe calcific atherosclerotic plaque in both intracranial internal carotid arteries causing a 50% diameter stenosis on the right and less than 50% diameter stenosis on the left.
2. Severe greater than 70% diameter stenosis in a severely hypoplastic right anterior cerebral artery A1 segment. Patent anterior communicating artery supplying blood to the more distal right anterior cerebral artery.
3. No CTA evidence for middle cerebral artery stenosis or occlusion.
4. 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
5. Severe 70% diameter stenosis in the P1 segment of the left posterior cerebral artery.
67-year-old male who presented with chief complaint of left-sided weakness as outlined H&P done on admission. Hospital course by problem list:
Acute R-thalamic CVA: TNK was given at 1759 on 10/27/23. Patient was monitored in the ICU. Imaging above. Patient was placed on aspirin statin and Plavix. He will require Plavix for 90 days. Telemetry showed sinus rhythm. The patient's symptoms
improved while hospitalized. On discharge she only had a minimal left facial droop.
DM2: New diagnosis with a1c 8.4%. The patient was started on metformin and glipizide.
Discharge Plan
-
Patient Disposition: Home (Routine Discharge)
Discharge Diagnosis/Procedures: acute right thalamic stroke
Condition: Good
Diet: Diabetic, Carb Controlled
Activity: No restrictions
Driving Restrictions: As prior to admission
Activity Restrictions/Additional Instructions:
You have an 8.5mm solid pulmonary nodule in the left upper lobe. You need a follow up CT chest in 3 months.
Referrals:
William Cox MD [Active] - in four to six weeks
Leoncio Ny MD [Family Provider] - in less than 1 week
Matthew Ibanez MD [Active] - (Incidental finding of partially calcified DELMY nodule. Routine visit in 1 m p d/c)
Prescriptions:
New
atorvastatin 80 mg Tablet
80 mg PO QPM Qty: 30 0RF
clopidogrel 75 mg Tablet
75 mg PO DAILY Qty: 30 0RF
aspirin 81 mg Tablet,Delayed Release (Dr/Ec)
81 mg PO DAILY Qty: 0 0RF
metformin 1,000 mg Tablet
1,000 mg PO BID@0800,1700 Qty: 60 0RF
glipizide 5 mg Tablet
5 mg PO BID@0800,1700 Qty: 60 0RF
Continued
fluticasone propionate 50 mcg/actuation Llewellyn,Suspension
1 spray INTRANASAL DAILYPRN PRN (Reason: allergies)
Discharge Orders:
Discharge Patient (As Directed); Ordered 10/29/23
Ordered By: Brian Mcdonough
Discharge Date and Time
Discharge Date/Time: 10/29/23 12:49
Print Language: JAPANESE
--- NOTE | 2023-11-07 10:27 | OID.L.PAT ---
Pulmonary Nodule Pat Letter
- -
11/07/23
CHUY BROWN
[address]
[place], [place]
Deamelisa VERA,
A pulmonary nodule was seen on an imaging study done by [facility]. This was reviewed by the [facility] Pulmonary Nodule Advisory Board and the following recommendation was made:
Recommendation: Follow up PET scan - now
If you have any questions, please do not hesitate to contact your primary care physician. If you are in need of a Physician, you can go to [email or web address] and click on 'Find a Provider'. Type 'Family Medicine' in the search.
Oncology Nurse Navigator
[facility]
[phone]
--- NOTE | 2023-11-07 10:27 | OID.L.REC ---
Pulmonary Nodule Follow Up
- Recommendation
11/07/23
Pulmonary Nodule Review Recommendations
Your patient, CHUY BROWN, had a pulmonary nodule seen on an imaging study done on 10/27/23 in the [facility] Emergency Room.
This was reviewed by the [facility] Pulmonary Nodule Advisory Board and the following recommendation was made:
Recommendation: Follow up PET scan - now
If you have any questions please do not hesitate to contact us.
Sincerely,
Oncology Nurse Navigator
[facility]
[phone]
== END 2023-10-29 12:49 | disposition home or self-care (01) | DRG 62 ==
LOC: ICU 18:00
PROVIDERS: Nurse Practitioner Family; ADMITTING PHYSICIAN Internal Medicine; CONSULT PHYSICIAN Internal Medicine Pulmonary Disease; CONSULT PHYSICIAN Student in an Organized Health Care Education/Training Program; EMERGENCY PHYSICIAN Emergency Medicine; FAMILY PHYSICIAN Internal Medicine Geriatric Medicine
PROC: 5A09357 Assistance with Respiratory Ventilation, Less than 24 Consecutive Hours, Continuous Positive Airway Pressure (ICD-10-PCS; 2023-10-27)
PROC: 3E03317 Introduction of Other Thrombolytic into Peripheral Vein, Percutaneous Approach (ICD-10-PCS; 2023-10-27)
DX: I63.9 Cerebral infarction, unspecified (principal); G81.94 Hemiplegia, unspecified affecting left nondominant side; Z68.41 Body mass index [BMI] 40.0-44.9, adult; R29.810 Facial weakness; E66.01 Morbid (severe) obesity due to excess calories; E11.65 Type 2 diabetes mellitus with hyperglycemia; R47.1 Dysarthria and anarthria; I44.0 Atrioventricular block, first degree; R91.1 Solitary pulmonary nodule; H53.2 Diplopia; Z88.0 Allergy status to penicillin; Z80.42 Family history of malignant neoplasm of prostate; Z80.0 Family history of malignant neoplasm of digestive organs
CPT/HCPCS: 70450; 70496; 70498; 70551; 71045; 80048; 80053; 80061; 82962; 83036; 83735; 84100; 84484; 85025; 85027; 85610; 85730; 92610; 93005; 93306; 94660; 96374; 97163; 97167; 99291; J3101; Q9967

== ENCOUNTER → 2023-11-10 11:04 | Outpatient (REF) | payer OTHER, SELFPAY | LOC: RCS 11:04 | PROVIDERS: ATTENDING PHYSICIAN Nurse Practitioner Family; FAMILY PHYSICIAN Internal Medicine Geriatric Medicine | DX: Z86.73 Personal history of transient ischemic attack (TIA), and cerebral infarction without residual deficits (principal) | CPT/HCPCS: 93225; 93226 ==

== ENCOUNTER → 2024-03-14 09:32 | Outpatient (REF) | payer OTHER, SELFPAY ==
[2024-03-14 11:07] LABS: ALT (SGPT) 25 U/L (0-50); AST (SGOT) 25 U/L (17-59); Albumin 4.5 g/dl (3.5-5.0); Alkaline Phosphatase 119 U/L (38-126); Blood Urea Nitrogen 13 mg/dl (9-20); Calcium 9.8 mg/dl (8.4-10.2); Carbon Dioxide 21 mmol/L (22-30); Chloride 102 mmol/L (98-107); Glucose 134 mg/dl (70-99); HDL Cholesterol 29 mg/dl; LDL Cholesterol, Calculated 80 mg/dl; Phosphorus 3.9 mg/dl (2.5-4.5); Potassium 4.1 mmol/L (3.5-5.1); Sodium 140 mmol/L (135-145); Total Bilirubin 0.8 mg/dl (0.2-1.3); Total Cholesterol 146 mg/dl (50-199); Total Protein 7.1 g/dl (6.3-8.2); Triglyceride 187 mg/dl (10-149); Very Low Density Lipoprotein 37 mg/dl (0-30); eGFR > 60.00
[2024-03-14 11:19] LABS: % Basophils 0.6 % (0-2); % Eosinophils 1.2 % (0-6); % Immature Granulocytes 0.1 % (0-0.5); % Lymphocytes 30.3 % (20.5-51.1); % Monocytes 6.2 % (1.7-9.3); % Neutrophils 61.6 % (42.2-75.2); Absolute Eosinophils 0.1 10^3/uL (0-0.7); Absolute Lymphocytes 2.2 10^3/uL (1.2-3.4); Absolute Monocytes 0.5 10^3/uL (0.1-0.6); Absolute Neutrophils 4.5 10^3/uL (1.4-6.5); Hematocrit 43.2 % (39.0-52.0); Hemoglobin 14.6 g/dL (13.0-18.0); Mean Corp Hgb Conc. 33.8 g/dL (33.0-37.0); Mean Corpuscular Volume 82.8 fL (80.0-94.0); Mean Platelet Volume 8.7 fL (7.4-10.4); Nucleated Red Blood Cells % 0 % (-); Platelet Count 245 10^3/uL (130-400); Red Blood Cell Count 5.22 10^6/uL (4.70-6.10); Red Cell Dist. Width 13.9 % (11.5-14.5); White Blood Cell Count 7.3 10^3/uL (4.8-10.8)
[2024-03-14 12:41] LABS: Glycohemoglobin (HgbA1c) 6.2 % (4.0-5.6)
== END ==
LOC: REG 09:32
PROVIDERS: ATTENDING PHYSICIAN Internal Medicine Geriatric Medicine
DX: E78.2 Mixed hyperlipidemia (principal); E66.01 Morbid (severe) obesity due to excess calories; E11.65 Type 2 diabetes mellitus with hyperglycemia
CPT/HCPCS: 36415; 80053; 80061; 80069; 83036; 85025

== ENCOUNTER → 2024-06-14 09:36 | Outpatient (REF) | payer OTHER, SELFPAY ==
[2024-06-14 11:00] LABS: % Basophils 0.6 % (0-2); % Eosinophils 2.2 % (0-6); % Immature Granulocytes 0.1 % (0-0.5); % Lymphocytes 28.8 % (20.5-51.1); % Monocytes 7.1 % (1.7-9.3); % Neutrophils 61.2 % (42.2-75.2); Absolute Eosinophils 0.2 10^3/uL (0-0.7); Absolute Monocytes 0.5 10^3/uL (0.1-0.6); Absolute Neutrophils 4.3 10^3/uL (1.4-6.5); Hematocrit 44.1 % (39.0-52.0); Mean Corpuscular Hgb 29.1 pg (27.0-31.0); Mean Corpuscular Volume 85.5 fL (80.0-94.0); Mean Platelet Volume 8.7 fL (7.4-10.4); Nucleated Red Blood Cells % 0 % (-); Platelet Count 244 10^3/uL (130-400); Red Blood Cell Count 5.16 10^6/uL (4.70-6.10); Red Cell Dist. Width 13.5 % (11.5-14.5)
[2024-06-14 11:21] LABS: Urine Albumin Trace (Neg - Trace); Urine Bilirubin Negative (Negative); Urine Character Clear (Clear); Urine Color Straw; Urine Glucose 3+ (Negative); Urine Ketone Negative (Negative); Urine Leukocyte 2+ (Negative); Urine Nitrite Negative (Negative); Urine Occult Blood Negative (Negative); Urine Specific Gravity 1.015 (<1.030); Urine Urobilinogen Negative (Neg - 1+)
[2024-06-14 11:33] LABS: Urine Bacteria Few (Negative); Urine Red Blood Cell 0-2 /HPF (0-2); Urine Squamous Cell 0-2 /LPF (Few); Urine White Cell 0-2 /HPF (0-5)
[2024-06-14 12:11] LABS: Vitamin D, 25-OH*** 25.5 ng/mL (30-80)
[2024-06-14 12:12] LABS: ALT (SGPT) 20 U/L (0-50); AST (SGOT) 22 U/L (17-59); Albumin 4.4 g/dl (3.5-5.0); Alkaline Phosphatase 94 U/L (38-126); Blood Urea Nitrogen 17 mg/dl (9-20); Calcium 9.3 mg/dl (8.4-10.2); Carbon Dioxide 28 mmol/L (22-30); Chloride 102 mmol/L (98-107); Glucose 102 mg/dl (70-99); HDL Cholesterol 26 mg/dl; LDL Cholesterol, Calculated 119 mg/dl; Potassium 4.6 mmol/L (3.5-5.1); Sodium 141 mmol/L (135-145); Total Bilirubin 0.4 mg/dl (0.2-1.3); Total Cholesterol 201 mg/dl (50-199); Total Protein 7.2 g/dl (6.3-8.2); Triglyceride 281 mg/dl (10-149); Very Low Density Lipoprotein 56 mg/dl (0-30); eGFR > 60.00
[2024-06-14 12:47] LABS: Glycohemoglobin (HgbA1c) 6.2 % (4.0-5.6)
== END ==
LOC: REG 09:36
PROVIDERS: ATTENDING PHYSICIAN Internal Medicine Geriatric Medicine; OTHER PHYSICIAN Nurse Practitioner Primary Care
DX: E78.2 Mixed hyperlipidemia (principal); I10 Essential (primary) hypertension; R53.1 Weakness; E55.9 Vitamin D deficiency, unspecified; E11.69 Type 2 diabetes mellitus with other specified complication; E66.01 Morbid (severe) obesity due to excess calories; G47.33 Obstructive sleep apnea (adult) (pediatric); Z13.31 Encounter for screening for depression
CPT/HCPCS: 36415; 80053; 80061; 81003; 81015; 82306; 83036; 85025

== ENCOUNTER → 2024-06-21 14:04 | Outpatient (REF) | payer OTHER, SELFPAY | LOC: RAD 14:04 | PROVIDERS: ATTENDING PHYSICIAN Nurse Practitioner Primary Care; FAMILY PHYSICIAN Internal Medicine Geriatric Medicine | DX: R91.1 Solitary pulmonary nodule (principal) | CPT/HCPCS: 71260; Q9967 ==

== ENCOUNTER → 2025-01-28 15:26 | Outpatient (REF) | payer OTHER, SELFPAY | LOC: RAD 15:26 | PROVIDERS: ATTENDING PHYSICIAN Internal Medicine Geriatric Medicine | DX: E78.2 Mixed hyperlipidemia (principal); E11.42 Type 2 diabetes mellitus with diabetic polyneuropathy; I10 Essential (primary) hypertension; F32.1 Major depressive disorder, single episode, moderate; R53.1 Weakness; E55.9 Vitamin D deficiency, unspecified; E11.69 Type 2 diabetes mellitus with other specified complication; E66.01 Morbid (severe) obesity due to excess calories; G47.33 Obstructive sleep apnea (adult) (pediatric); Z13.31 Encounter for screening for depression | CPT/HCPCS: 93971 ==

== ENCOUNTER → 2025-02-14 09:01 | Outpatient (REF) | payer OTHER, SELFPAY | LOC: RAD 09:01 | PROVIDERS: ATTENDING PHYSICIAN Internal Medicine Geriatric Medicine | DX: R60.0 Localized edema (principal) | CPT/HCPCS: 93971 ==

== ENCOUNTER 2025-05-10 08:07 | Outpatient (RCR) | payer OTHER, SELFPAY | END 2025-05-10 23:59 | disposition home or self-care (01) | LOC: RPT 08:07 | PROVIDERS: ATTENDING PHYSICIAN Internal Medicine Geriatric Medicine | DX: I89.0 Lymphedema, not elsewhere classified (principal); Z73.6 Limitation of activities due to disability; R26.2 Difficulty in walking, not elsewhere classified; E11.42 Type 2 diabetes mellitus with diabetic polyneuropathy | CPT/HCPCS: 97162; 97530; 97760; 97763 ==

== ENCOUNTER 2025-06-11 07:34 | Outpatient (RCR) | payer OTHER, SELFPAY | END 2025-06-11 23:59 | disposition home or self-care (01) | LOC: RPT 07:34 | PROVIDERS: ATTENDING PHYSICIAN Internal Medicine Geriatric Medicine | DX: I89.0 Lymphedema, not elsewhere classified (principal); Z73.6 Limitation of activities due to disability; R26.2 Difficulty in walking, not elsewhere classified; E11.42 Type 2 diabetes mellitus with diabetic polyneuropathy | CPT/HCPCS: 97530 ==